=== PATIENT | female | born 1955 | race Caucasian/White ===

== ENCOUNTER 2018-07-17 08:59 | Day surgery (SDC) | payer OTHER ==
[2018-07-17] MEDS ORDERED: Bupivacaine HCl 0.25% PF (10 ml) Inj ONE (10:55)
[2018-07-17] MEDS ORDERED: Lidocaine/Epinephrine 1% 1:100000 10 ML IJ ONE (10:55)
[2018-07-17] MEDS ORDERED: Lidocaine 1% 20 MG/2 ML PF AMP ONE (10:57)
[2018-07-17] MEDS ORDERED: ceFAZolin 1 gm in NS 1 GM/100 ML BAG IVPB ONE (10:57)
[2018-07-17] MEDS ORDERED: Midazolam 2 MG/2 ML VIAL ONE (11:40)
[2018-07-17] MEDS ORDERED: Bacitracin 500 Units/gm Oint Foilpak UD ONE (12:29)
[2018-07-17] MEDS ORDERED: HYDROmorphone 0.5 mg/0.5 ml ISec IVP PRN (12:45)
--- NOTE | 2018-07-17 12:47 | PCM.SURG1 ---
Surgeon's Initial Post Op Note - Surgeon's Notes Surgeon: Dr. Trinidad Medical Affairs Director: Jesse Mcgowan PGY3 Type of Anesthesia: IV Sedation, Local Anesthesia Administered By: JULI Pre-Operative Diagnosis: Scalp cysts x3 Operative Findings: occipital cyst [id number], posterior parietal cyst [id number], anterior parietal cyst [id number] Post-Operative Diagnosis: SAme Operation Performed: Excision of scalp cysts x3 Specimen/Specimens Removed: occipital cyst [id number], posterior parietal cyst [id number], anterior parietal cyst [id number] Estimated Blood Loss: EBL {In ML}: 10 Blood Products Given: N/A Drains Used: No Drains Post-Op Condition: Good Date of Surgery/Procedure: 07/17/18 Time of Surgery/Procedure: 12:47
[2018-07-17 14:35] VITALS: BP 146/74; PULSE 70; RESP 18; TEMP 98; O2SAT 100
--- NOTE | 2018-07-19 02:52 | OP ---
PROCEDURE DATE: 07/17/2018 PREOPERATIVE DIAGNOSIS: Sebaceous cysts of the scalp, multiple. POSTOPERATIVE DIAGNOSES: 1. Sebaceous cyst of the scalp, parietal anterior. 2. Sebaceous cyst of the scalp, parietal posterior. 3. Sebaceous cyst of the scalp, mid occipital region. PROCEDURES DONE: 1. Excision of sebaceous cyst of the scalp, parietal anterior, 2 x 1 cm size. 2. Excision of sebaceous cyst of the scalp, parietal posterior, 1 x 1 cm size. 3. Excision of sebaceous of the scalp, mid occipital region, 1 x 1 cm size. SURGEON: Harjeet Trinidad MD. PRODUCTION ASSOCIATE: Jesse Mcgowan, PGY-3 resident. ANESTHESIA: Local anesthesia plus sedation. ESTIMATED BLOOD LOSS: Around 10 mL. DRAINS: None. PATHOLOGY: All the three sebaceous cysts were sent separately. COMPLICATIONS: None. INTRAOPERATIVE FINDINGS: The patient had parietal anterior, parietal posterior, and mid occipital sebaceous cysts. DESCRIPTION OF PROCEDURE: On intraoperative step, this 62-year-old female who was diagnosed with sebaceous cysts of the scalp, and the patient was considered for excision of sebaceous cysts of the scalp and brought to the OR, placed in left lateral position on the operating table, and the scalp area was prepped and draped in sterile fashion, and local anesthesia was injected in the parietal anterior, parietal posterior as well as the mid occipital sebaceous cyst, and after that transverse incision was made on the anterior sebaceous cyst, upper and lower flap was created and sebaceous cyst was completely excised and it was sent off the table for pathology. The second sebaceous cyst was also excised in similar fashion, and the third sebaceous cyst in the mid occipital region was also excised in the similar fashion, and hemostasis was achieved. All the wounds were closed in one layer with 4-0 nylon interrupted suture, and dry sterile dressing was applied. The patient tolerated the procedure well. The count of the instrument and gauze were correct. There was no apparent complication. The patient was reversed from sedation and sent to the postanesthesia care unit in stable condition. Harjeet Trinidad MD [facility]
== END 2018-07-17 14:24 | disposition home or self-care (01) ==
LOC: C.SDS 08:59
PROVIDERS: ATTEND Surgery Surgical Critical Care
DX: L72.3 Sebaceous cyst (principal); L72.11 Pilar cyst; L72.12 Trichodermal cyst
CPT/HCPCS: 11426; 88304; J0690; J1885; J2250; J3010